=== PATIENT | male | born 2000 | race Caucasian/White ===

== ENCOUNTER 2024-06-01 16:10 | Emergency (ER) | payer BC, SELFPAY ==
--- NOTE | ~2024-06-01 | CT_ITS ---
CLINICAL INDICATION: Right-sided abdominal pain COMPARISON: None. TECHNIQUE: Multiple contiguous axial images of the abdomen and pelvis were performed following the ad ministration of with 100 mL Omnipaque-350 intravenous contrast The dose-length product (DLP) was 685.12 mGy-cm. Automated exposure control and iterative reconstruction technique were employed. FINDINGS/OBSERVATIONS: Visualized lower thorax: The bilateral lung bases are clear. The heart is of normal size, without pericardial effusion. Small hiatal hernia is present. Liver: Decreased attenuation with normal enhancement within the liver suggesting fatty infiltration. Small f ocus within segment 4 suggesting focal fatty sparing. Gallbladder and biliary system: The gallbladder is only minimally distended, and otherwise unremarkable. Pancreas: The pancreas enhances homogeneously without ductal dilatation. Spleen: The spleen enhances homogeneously and is not enlarged measuring 8 cm in longitudinal dimension. Kidneys: The bilateral kidneys enhance symmetrically without hydronephrosis or renal calculi. Adrenal glands: Unremarkable. Gastrointestinal tract: Trace mural thickening and edema within multiple loops of small bowel, primarily to the right of midl ine for which a focal enteritis is suspected. A similar pattern is detected within the stomach and proximal duodenum although less prominent second mariela to underdistention. Appendix: The appendix is of normal caliber (axial series, images 118 through 134). Vasculature: Unremarkable. Lymph nodes: No pathologically enlarged or morphologically suspicious lymph nodes within the retroperitoneum or at the root of the mesentery. Multiple benign-appearing lymph nodes within the bilateral inguinal regio ns, a nonspecific finding. Pelvic structures: The bladder is decompressed, and otherwise unremarkable. The prostate gland is not enlarged. Body wall and musculoskeletal: Small fat-containing umbilical hernia. No significant degenerative disease within the lower thoracic or lumbosacral spine. IMPRESSION: Findings suggestive of a gastritis/duodenitis/enteritis, as detailed above. Normal gallbladder. Normal appendix. Reviewed, dictated and finalized at location A. UNICATION TECHNICIAN
--- NOTE | 2024-06-01 16:57 | ECG_ITS ---
Test Date: 2024-06-01 17:31:10 Measurements Intervals [place] Rate: 51 P: 14 ME: 132 QRS: 56 QRSD: 92 T: 42 QT: 424 QTc: 391 Interpretive Statements SINUS BRADYCARDIA WITH SINUS ARRHYTHMIA No previous ECG available for comparison Electronically Signed On 06-01-2024 17:53:18 PER ASSESSMENT NURSE by Nahomy Vasquez M.D.
--- NOTE | 2024-06-01 16:58 | ED_ITS ---
HPI - Abdominal Pain General Chief Complaint: Abdominal Pain <Erna BurksPAT singh - Last Filed: 06/01/24 17:09> Stated Complaint: abd pain <Erna Corey PAT Rodriguez - Last Filed: 06/01/24 17:09> Time Seen by Provider: 06/01/24 16:50 <Erna L. ANTHONY RodriguezN - Last Filed: 06/01/24 17:09> Focused HPI: Patient is a 23-year-old male presents to the ER with significant right upper and lower quadrant abdominal pain. He reports he has had symptoms including fever, chills, cough, emesis, nausea for the past 3 days. Earlier today he tested positive for the flu. Patient reports his abdominal pain was intermittent but is now constant. He reports the pain is in his right upper quadrant and radiates to his right flank and to his left abdomen. Patient reports marijuana use every other day, but has not used in the past couple of days. He reports his medical history includes asthma when he was younger but otherwise he has no medical history relevant to this ER visit. Patient denies any chest pain, shortness of breath. GENERAL: Well-appearing, well-nourished, and in no acute distress. HEAD: Normocephalic, atraumatic. CHEST: Clear to auscultation. ?No respiratory distress. HEART: Regular rate and rhythm.? NEURO: ?Alert and oriented x3. ABDOMEN: Positive Rovsing sign, positive McBurney's sign, + BS, increased pain with palpation to RUQ and RLQ Patient screened in triage and initial orders placed.? ?Additional care and disposition to be based upon?diagnostic testing and treatment. <Erna Rodriguez APRN - Last Filed: 06/01/24 17:09> Source: patient <JOAQUIN Marx Last Filed: 06/02/24 01:35> Mode of arrival: ambulatory <JOAQUIN Marx Last Filed: 06/02/24 01:35> Limitations: no limitations <JOAQUIN Marx Last Filed: 06/02/24 01:35> History of Present Illness HPI narrative: Agree with triage note above. <JOAQUIN Marx Last Filed: 06/02/24 01:35> Related Data Allergies/Adverse Reactions: Allergies Allergy/AdvReac Type Severity Reaction Status Date / Time sulfamethoxazole (From Allergy Mild Rash Verified 06/01/24 18:00 Sulfamethoxazole-Trimethoprim) trimethoprim (From Allergy Mild Rash Verified 06/01/24 18:00 Sulfamethoxazole-Trimethoprim) <Erna Rodriguez APRN - Last Filed: 06/01/24 17:09> Review of Systems 2 Review of Systems: All systems as dictated in HPI <JOAQUIN Marx Last Filed: 06/02/24 01:35> Exam 2 Narrative: GENERAL: Well-appearing, well-nourished, and in no acute distress. HEAD: Normocephalic, atraumatic. EYES: PERRLA and EOMI. ENT: Nares clear, no rhinorrhea or epistaxis. Mucous membranes moist. Oropharynx without tonsillar hypertrophy exudate or other lesions. NECK: Supple. No adenopathy or masses. CHEST: No respiratory distress. Clear to auscultation. No wheezes rales or rhonchi HEART: Regular rate and rhythm. No murmur heard. Normal peripheral pulses. ABDOMEN: Soft, nontender, nondistended, normal active bowel sounds. MSK: Normal range of motion. No edema. SKIN: Warm, dry, no rash. NEURO: Alert and oriented x4. No focal deficits. PSYCH: Normal mood and affect. <Irving Kenny PA-C - Last Filed: 06/02/24 01:35> Course Reevaluation(s) Reevaluation #1: Patient is doing better overall. States that he is not having the cramps now. <Irving Kenny PA-C - Last Filed: 06/02/24 01:35> Date: 06/01/24 <JOAQUIN Marx Last Filed: 06/02/24 01:35> Time: 20:44 <JOAQUIN Marx Last Filed: 06/02/24 01:35> Vital Signs Vital signs: Vital Signs Temperature 98.7 F 06/01/24 17:14 Pulse Rate 56 L 06/01/24 17:14 Respiratory Rate 20 06/01/24 17:14 Blood Pressure 141/95 H 06/01/24 17:14 Pulse Oximetry 100 06/01/24 17:14 Oxygen Delivery Room Air 06/01/24 17:14 Temperature 98.7 F 06/01/24 17:14 Pulse Rate 55 L 06/01/24 21:42 Respiratory Rate 16 06/01/24 21:42 Blood Pressure 151/59 H 06/01/24 21:42 Pulse Oximetry 100 06/01/24 21:42 Oxygen Delivery Room Air 06/01/24 17:14 <Erna Rodriguez, MACHINE ERECTOR - Last Filed: 06/01/24 17:09> Vital Signs Temperature 98.7 F 06/01/24 17:14 Pulse Rate 56 L 06/01/24 17:14 Respiratory Rate 20 06/01/24 17:14 Blood Pressure 141/95 H 06/01/24 17:14 Pulse Oximetry 100 06/01/24 17:14 Oxygen Delivery Room Air 06/01/24 17:14 Temperature 98.7 F 06/01/24 17:14 Pulse Rate 55 L 06/01/24 21:42 Respiratory Rate 16 06/01/24 21:42 Blood Pressure 151/59 H 06/01/24 21:42 Pulse Oximetry 100 06/01/24 21:42 Oxygen Delivery Room Air 06/01/24 17:14 <Irving Kenny PA-C - Last Filed: 06/02/24 01:35> MDM - Abdominal Pain MDM Narrative Medical decision making narrative: This is a 23-year-old male who presents to the ED for chief complaint of N/V/D and abdominal pain. Vitals are normal. Exam is benign overall. Patient was just tested positive for flu today. Lab work unremarkable overall. He does show signs of dehydration on the urinalysis with 4+ ketones but no UTI. CT abdomen pelvis with IV contrast: IMPRESSION: Findings suggestive of a gastritis/duodenitis/enteritis, as detailed above. Normal gallbladder. Normal appendix. Presentation consistent with gastroenteritis concurrent with influenza. He improved with fluids, antiemetics and Toradol here. Rx for Zofran given for home. Patient will be discharged in stable condition. Supportive measures discussed and return precautions given. Patient is understanding and agreeable with plan for discharge with PCP follow-up. <Irving Kenny PA-C - Last Filed: 06/02/24 01:35> Lab Data Result diagrams: 06/01/24 17:34 06/01/24 17:34 <Erna Rodriguez APRN - Last Filed: 06/01/24 17:09> Labs: Lab Results 06/01/24 Range/Units 17:34 WBC 6.5 (4.5-10.0) K/mm3 RBC 5.62 (4.6-6.20) M/mm3 Hgb 17.0 (14.0-18.0) g/dL Hct 49.3 (42.0-52.0) % MCV 87.7 (80-100) fl MCH 30.2 (26-34) pg MCHC 34.5 (32-36) g/dl RDW 11.9 (11.5-14.5) % Plt Count 281 (150-375) k/mm3 MPV 10.0 (7.4-10.4) fl Immature Gran % (Auto) 0.3 (0-0.5) % Neut % (Auto) 69.7 (45.5-73.1) % Lymph % (Auto) 14.5 L (18.3-44.2) % Saunders % (Auto) 14.8 H (2.6-8.5) % Eos % (Auto) 0.5 (0-4.4) % Baso % (Auto) 0.2 (0.2-1.2) % Lymph # (Auto) 0.94 (0.9-3.2) K/mm3 Saunders # (Auto) 1.0 H (0.1-0.6) K/mm3 Eos # (Auto) 0.0 (0-0.3) K/mm3 Baso # (Auto) 0.0 (0.0-0.1) K/mm3 Abs Immat Gran (auto) 0.02 (0.00-0.031) K/mm3 Absolute Neuts (auto) 4.5 (1.3-6.7) K/mm3 Absolute Nucleated RBC 0.000 (0.0-0.012) K/mm3 Nucleated RBC % 0.0 (0.0-0.2) % PT 13.9 (11.1-14.7) Seconds INR 1.0 APTT 36.9 H (22.3-36.8) Seconds Sodium 137 (137-145) mmol/L Potassium 3.8 (3.4-5.0) mmol/L Chloride 98 (98-107) mmol/L Carbon Dioxide 23 (22-30) mmol/L Anion Gap 16 H (4-12) mmol/L BUN 13 (9-20) mg/dL Creatinine 0.78 (0.7-1.3) mg/dL Estim Creat Clear Calc 136 ml/min Estimated GFR > 60 (59 - ) Glucose 98 (65-110) mg/dL Calcium 9.9 (8.4-10.2) mg/dL Total Bilirubin 0.7 (0.2-1.3) mg/dL AST 32 (17-59) U/L ALT 51 H (6-50) U/L Alkaline Phosphatase 65 (38-126) U/L Troponin I < 0.012 (0.000-0.034) ng/mL Total Protein 8.0 (6.3-8.2) g/dL Albumin 4.9 (3.5-5.1) g/dL Lipase 42 (23-300) U/L Urine Color Dark yellow (Yellow) Urine Appearance Clear (Clear) Urine pH 5.5 (5.0-9.0) Ur Specific Jackson > 1.045 H (1.001-1.035) Urine Protein 3+ H (Negative) mg/dL Urine Glucose (UA) Negative (Negative) mg/dL Urine Ketones 4+ H (Negative) mg/dL Ur Blood (Man) Negative (Negative) Urine Nitrate Negative (Negative) Urine Bilirubin Negative (Negative) Urine Urobilinogen 1.0 (<2.0) mg/dL Leukocyte Esterase Rfl Negative (Negative) TATUM/UL Urine RBC 0-2 (0-2) /hpf Urine WBC 0-5 (0-3) /hpf Ur Squamous Epith Cells None seen (Few) /hpf Urine Bacteria None seen /hpf Urine Casts 3-5 Hyaline Casts Present (None) /lpf <Erna Rodriguez, MACHINE ERECTOR - Last Filed: 06/01/24 17:09> Lab Results 06/01/24 Range/Units 17:34 WBC 6.5 (4.5-10.0) K/mm3 RBC 5.62 (4.6-6.20) M/mm3 Hgb 17.0 (14.0-18.0) g/dL Hct 49.3 (42.0-52.0) % MCV 87.7 (80-100) fl MCH 30.2 (26-34) pg MCHC 34.5 (32-36) g/dl RDW 11.9 (11.5-14.5) % Plt Count 281 (150-375) k/mm3 MPV 10.0 (7.4-10.4) fl Immature Gran % (Auto) 0.3 (0-0.5) % Neut % (Auto) 69.7 (45.5-73.1) % Lymph % (Auto) 14.5 L (18.3-44.2) % Saunders % (Auto) 14.8 H (2.6-8.5) % Eos % (Auto) 0.5 (0-4.4) % Baso % (Auto) 0.2 (0.2-1.2) % Lymph # (Auto) 0.94 (0.9-3.2) K/mm3 Saunders # (Auto) 1.0 H (0.1-0.6) K/mm3 Eos # (Auto) 0.0 (0-0.3) K/mm3 Baso # (Auto) 0.0 (0.0-0.1) K/mm3 Abs Immat Gran (auto) 0.02 (0.00-0.031) K/mm3 Absolute Neuts (auto) 4.5 (1.3-6.7) K/mm3 Absolute Nucleated RBC 0.000 (0.0-0.012) K/mm3 Nucleated RBC % 0.0 (0.0-0.2) % PT 13.9 (11.1-14.7) Seconds INR 1.0 APTT 36.9 H (22.3-36.8) Seconds Sodium 137 (137-145) mmol/L Potassium 3.8 (3.4-5.0) mmol/L Chloride 98 (98-107) mmol/L Carbon Dioxide 23 (22-30) mmol/L Anion Gap 16 H (4-12) mmol/L BUN 13 (9-20) mg/dL Creatinine 0.78 (0.7-1.3) mg/dL Estim Creat Clear Calc 136 ml/min Estimated GFR > 60 (59 - ) Glucose 98 (65-110) mg/dL Calcium 9.9 (8.4-10.2) mg/dL Total Bilirubin 0.7 (0.2-1.3) mg/dL AST 32 (17-59) U/L ALT 51 H (6-50) U/L Alkaline Phosphatase 65 (38-126) U/L Troponin I < 0.012 (0.000-0.034) ng/mL Total Protein 8.0 (6.3-8.2) g/dL Albumin 4.9 (3.5-5.1) g/dL Lipase 42 (23-300) U/L Urine Color Dark yellow (Yellow) Urine Appearance Clear (Clear) Urine pH 5.5 (5.0-9.0) Ur Specific Jackson > 1.045 H (1.001-1.035) Urine Protein 3+ H (Negative) mg/dL Urine Glucose (UA) Negative (Negative) mg/dL Urine Ketones 4+ H (Negative) mg/dL Ur Blood (Man) Negative (Negative) Urine Nitrate Negative (Negative) Urine Bilirubin Negative (Negative) Urine Urobilinogen 1.0 (<2.0) mg/dL Leukocyte Esterase Rfl Negative (Negative) TATUM/UL Urine RBC 0-2 (0-2) /hpf Urine WBC 0-5 (0-3) /hpf Ur Squamous Epith Cells None seen (Few) /hpf Urine Bacteria None seen /hpf Urine Casts 3-5 Hyaline Casts Present (None) /lpf <Irving Kenny PA-C - Last Filed: 06/02/24 01:35> Imaging Data Radiologist's impression: ITS Impressions Abdomen/Pelvis CT 06/01/24 18:37 IMPRESSION: Findings suggestive of a gastritis/duodenitis/enteritis, as detailed above. Normal gallbladder. Normal appendix. <Erna Rodriguez APRN - Last Filed: 06/01/24 17:09> ITS Impressions Abdomen/Pelvis CT 06/01/24 18:37 IMPRESSION: Findings suggestive of a gastritis/duodenitis/enteritis, as detailed above. Normal gallbladder. Normal appendix. <Irving Kenny PA-C - Last Filed: 06/02/24 01:35> Discharge Plan Discharge Clinical Impression: Viral gastroenteritis <Erna Rodriguez APRN - Last Filed: 06/01/24 17:09> Patient Disposition: Home, Self-Care <Erna Rodriguez APRN - Last Filed: 06/01/24 17:09> Condition: Stable <Erna Rodriguez APRN - Last Filed: 06/01/24 17:09> Instructions: Antibiotic Form, Gastroenteritis (ED) <Erna Rodriguez APRN - Last Filed: 06/01/24 17:09> Additional Instructions: Your exam and imaging today are reassuring overall. This is probably a viral gastroenteritis which will resolve on its own over the next several days. Use Zofran as needed for nausea. Stay very well hydrated and follow-up PCP on this. If you have any new or worsening symptoms please return to the ER for further evaluation. <Erna Rodriguez APRN - Last Filed: 06/01/24 17:09> Patient Language: Citizen Of [place] <Erna Rodriguez APRN - Last Filed: 06/01/24 17:09> Prescriptions: New ondansetron 4 mg tablet,disintegrating 4 mg PO Q8H PRN (Reason: nausea and vomiting) Qty: 10 0RF <Erna Rodriguez APRN - Last Filed: 06/01/24 17:09> Follow-up/Referrals: PHYSICIAN NOT ON STAFF,NONSTAFF [Primary Care Provider] - <Erna Rodriguez APRN - Last Filed: 06/01/24 17:09> Time of Disposition: 20:48 <Erna Rodriguez APRN - Last Filed: 06/01/24 17:09> 20:48 <Irving Kenny PA-C - Last Filed: 06/02/24 01:35>
[2024-06-01 17:14] VITALS: BP 141/95; PULSE 56; RESP 20; TEMP 37.1; O2SAT 100
[2024-06-01 17:45] LABS: Basophils Percent Auto 0.2 % (0.2-1.2); Eosinophils Percent Auto 0.5 % (0-4.4); Hematocrit 49.3 % (42.0-52.0); Immature Granulocyte Absolute 0.02 K/mm3 (0.00-0.031); Immature Granulocyte Percent A 0.3 % (0-0.5); Lymphocytes Absolute Auto 0.94 K/mm3 (0.9-3.2); Lymphocytes Percent Auto 14.5 % (18.3-44.2); Mean Corpuscular HGB Conc 34.5 g/dl (32-36); Mean Corpuscular Hemoglobin 30.2 pg (26-34); Mean Corpuscular Volume 87.7 fl (80-100); Monocytes Percent Auto 14.8 % (2.6-8.5); Neutrophils Absolute Auto 4.5 K/mm3 (1.3-6.7); Neutrophils Percent Auto 69.7 % (45.5-73.1); Platelet Count Result 281 k/mm3 (150-375); Red Blood Count 5.62 M/mm3 (4.6-6.20); Red Cell Distribution Width 11.9 % (11.5-14.5); White Blood Count 6.5 K/mm3 (4.5-10.0)
[2024-06-01 17:56] LABS: Alanine Aminotransferase 51 U/L (6-50); Albumin Level 4.9 g/dL (3.5-5.1); Alkaline Phosphatase 65 U/L (38-126); Anion Gap 16 mmol/L (4-12); Aspartate Amino Transferase 32 U/L (17-59); Bilirubin,Total 0.7 mg/dL (0.2-1.3); Blood Urea Nitrogen 13 mg/dL (9-20); Calcium 9.9 mg/dL (8.4-10.2); Carbon Dioxide 23 mmol/L (22-30); Chloride 98 mmol/L (98-107); Estimated CRCL calculation 136 ml/min; Estimated Glomerular Filt Rate > 60; Glucose 98 mg/dL (65-110); Lipase 42 U/L (23-300); Potassium 3.8 mmol/L (3.4-5.0); Sodium 137 mmol/L (137-145)
[2024-06-01 17:58] LABS: Add Urine Microscopic? YES; Appearance Urine Clear (Clear); Bacteria Urine None Seen /hpf; Bilirubin Urine Negative (Negative); Blood Urine Negative (Negative); Color Urine Dark Yellow (Yellow); Glucose Urine UA Negative (Negative); Hyaline Casts Urine Present /lpf; Ketones Urine 4+ mg/dL (Negative); Leukocyte Esterase Ur Negative LEU/UL (Negative); Nitrate Urine Negative (Negative); Protein Urine 3+ mg/dL (Negative); RBC Urine 0-2 /hpf (0-2); Specific Grav Ur > 1.045 (1.001-1.035); Squamous Epithelial Cell Urine None Seen /hpf (Few); WBC Urine 0-5 /hpf (0-3); pH Urine 5.5 (5.0-9.0)
[2024-06-01 18:05] LABS: Prothrombin Time 13.9 Seconds (11.1-14.7)
[2024-06-01 18:06] LABS: Partial Thromboplastin Time 36.9 Seconds (22.3-36.8)
[2024-06-01 18:08] LABS: Troponin I < 0.012 ng/mL (0.000-0.034)
[2024-06-01 18:49] VITALS: BP 161/87; PULSE 67; RESP 20; O2SAT 100
[2024-06-01] MEDS: KETOROLAC 30 MG/ML VIAL (*BKC) IV PUSH (19:17)
[2024-06-01 19:53] VITALS: BP 131/71; PULSE 54; RESP 15; O2SAT 100
[2024-06-01] MEDS: BELLADONNA ALK/PHENOB ELIX 10 ML, MAG HYDROX/ALUMINUM HYD/SIMETH 30 ML, LIDOCAINE 2% VI... PO (20:00)
[2024-06-01] MEDS: FAMOTIDINE 20 MG/2 ML VIAL IV PUSH (20:01)
[2024-06-01] MEDS: LACTATED RINGERS 1,000 ML 999 ML IV CONT ×2 (20:01)
[2024-06-01 21:42] VITALS: BP 151/59; PULSE 55; RESP 16; O2SAT 100
--- OUTSIDE RECORDS SUMMARY | 2024-06-04 14:53 | XMS_ITS | Clinical Summary ---
Author Organization [facility] [id number] Address [address] [place] [address] Care Team Providers Care Core Driller Name Role Phone Ana Renteria MD, Isak Sarah Primary Care Provide r Allergies Active Allergy Reactions Criticality Noted Date Comments Sulfamethoxazole-Trimethoprim Rash Medium 2009 Medications No known medications Active Problems Problem Noted Date Diagnosed Date Deviated nasal septum 02/21/2023 Epistaxis 01/30/2023 Assessment & Plan (01/30/2023 7:40 AM CDT): Refer to ENT for possible cauterization Routine medical exam 02/27/2022 Assessment & Plan (07/09/2023 8:39 AM PRACTICE MANAGEMENT CONSULTANT): Wear sunscreen with SPF over 50 while outdoors. Wear sun protective head wear and clothing if planning to stay outdoors exposed to the direct sunlight for extended hours. Wear seatbelts while in a vehicle. Do not TEXT and DRIVE Do not DRINK and DRIVE. Drink responsibly Follow a heart healthy diet and lifestyle. Consume 5-7 servings of fruits and vegetables a day.. Such as the Mediterranean Diet. Maintain/attain normal body weight. Exercise regularly, minimum 20 mins 3 days a week to reduce cardiovascular healthy. Maintain good sleep schedule and sleep habits I recommend that all patients follow a diet that is high in fruits and vegetables and low in processed foods such as sugar and foods that are made with white flour. I recommend using beneficial fats such as olive oil, nuts, seeds and berries and avoiding saturated animal fats. Please stay physically active to the extent that you are physically able to. Test results: if you have not received communication about test results within 7 days of the test being performed, please contact the office. I strongly encourage myChart sign ups. It can facilitate communication flow. Please contact the office for instructions on signing up. Assessment & Plan (02/27/2022 3:00 PM CDT): Labs ordered but would also need this prior to starting medications Attention deficit 02/27/2022 Assessment & Plan (02/27/2022 3:00 PM CDT): Has symptoms and possibly falls under pathological ADHD , will look into testing for this Discussed treatments, risk benefits alternatives Class 1 obesity due to exces s calories without serious comorbidity with body mass index (BMI) of 31.0 to 31.9 in adult 02/27/2022 Encounters Date Type Department Care Team Description 06/01/2024 3:15 PM PRACTICE MANAGEMENT CONSULTANT Office Visit [facility] [address] [phone] Janina Browning NP Abdominal pain (Primary Dx); Influenza A 06/01/2024 Nurse Triage [facility] [address] [place] [phone] Isak Perze Jr., MD from Last 3 Months Immunizations Name Administration Dates Next Due DTaP 07/28/2004, 2,01/31/2001,12/02,2000 HPV, Quadrivalent 03/08/2014,11/04/2013,09/05/19 14 Hep A, Pediatric 09/03/2012, 2,07/31/2006,07/31 Hep B / HiB 10/28/2001,2000,2000 Hep B, Adolescent or Pediatric 10/28/2001,2000,2000 IPV 07/31/2005, 2,2000,09/30 Influenza LAIV (Nasal) 01/30/2012,01/09/2011,09/2009 Influenza, Quadrivalent, Spl it, Preservative Free, Intramuscular 03/08/2014 Influenza, Unspecified 01/30/2023(Deferr ed: Patient Refused),02/27/2022(Deferred: Patient Refused),01/19/2022(Deferred: Patient Refused),03/09/2008 MMR 07/31/2005,07/29/2001 Meningococcal MCV4P (Menactra) 09/10/2016,2011 Pfizer Sars-Cov-2 Bivalent V accination (12+ YRS) 05/18/2023 Pneumococcal Conjugate 7-Valent 01/27/20,07/29/2001,2000,09/30 Pneumococcal Conjugate, Unspecified 01/11,07/29/2001,2000,09/30 Tdap 07/09/2023,07/30/2011 Varicella 07/31/2006,08/06/2003 Surgical History Surgery Date Site/Laterality Comments TONSILLECTOMY AND ADENOIDECTOMY Medical History Medical History Date Comments Asthma Family History Relation Name Status Comments Father Alive Mother Alive Social History Tobacco Use Types Packs/Day Years Used Date Smoking Tobacco: Never Smokeless Tobacco: Never Tobacco Cessation:Counseling Given: Not Answered AUDIT-C Answer Date Recorded Q1: How often do you have a drink containing alc ohol? 2-4 times a month 01/30/2023 Q2: How many drinks containi ng alcohol do you have on a typical day when you are drinking? 1 or 2 01/30/2023 Q3: How often do you have si x or more drinks on one occasion? Never 01/30/2023 PHQ-2 Answer Date Recorded PHQ-2 Total Score (If total score is 3 or more points, staff should administer the PHQ-9) 0 08/19/2023 Sex and Gender Information Value Date Recorded Sex Assigned at Not on file Legal Sex Male 7:08 PM PRACTICE MANAGEMENT CONSULTANT Gender Identity Male 06/01/2024 10:38 AM PRACTICE MANAGEMENT CONSULTANT Sexual Orientation Straight 06/01/2024 10 :38 AM PRACTICE MANAGEMENT CONSULTANT Obstetrics History Last Filed Vital Signs Vital Sign Reading Time Taken Comments Blood Pressure 128/84 06/01/2024 3:28 PM PRACTICE MANAGEMENT CONSULTANT Pulse 69 06/01/2024 3:28 PM PRACTICE MANAGEMENT CONSULTANT Temperature 37.1 ??C (98.7 ??F) 06/01/2024 3:28 PM CS T Respiratory Rate 24 06/01/2024 3:28 PM PRACTICE MANAGEMENT CONSULTANT Oxygen Saturation 99% 06/01/2024 3:28 PM PRACTICE MANAGEMENT CONSULTANT Inhaled Oxygen Concentration - - Weight 95.7 kg (211 lb) 06/01/2024 3:28 PM PRACTICE MANAGEMENT CONSULTANT Height 175.3 cm (5' 9.02 ) 08/19/2023 10:45 AM C DT Body Mass Index 31.14 08/19/2023 10:45 AM CDT Plan of Treatment Health Maintenance Due Date Last Done Comments Hepatitis C Screening 2000 Meningococcal B Vaccine (1 o f 2 - Patient Seeks Protection) 2016 Covid-19 Vaccine (5 2023-2 5 season) 2024 05/18/2023, 03/28/2021, 09/01/2020, Additional history exists Influenza Vaccine (#1) 2024 4, 01/30/2012, 01/09/2011, Additional history exists Regular Well Visit/Exam 18-64 07/09/2024 07/09/2023, 02/27/2022 Depression Screening 08/18/2024 08/19/2023, 07/09/2023, 01/30/2023, Additional history exists DTaP/Tdap/Td Vaccine (8 - Td or Tdap) 07/09/2033 07/09/2023, 07/30/2011, 07/28/2004, Additional history exists Pneumococcal vaccine <65 Completed 002, 01/26/2002, 07/29/2001, Additional history exists Varicella Vaccines Completed 07/31/2006, 08/06/2003 HPV Vaccines Completed 03/08/2014, 10/12, 09/04/2013 Procedures Procedure Name Priority Date/Time Associated Diagnosis Comments POC INFLUENZA A/B, COVID-19 ANTIGEN Routine 06/01/2024 3:35 PM PRACTICE MANAGEMENT CONSULTANT Influenza A from Last 3 Months Results * (ABNORMAL) POC Influenza A/B, COVID-19 antigen (06/01/2024 3:35 PM PRACTICE MANAGEMENT CONSULTANT) Influenza A Ag, POC Positive(A) Negative [facility] Influenza B Ag, POC Negative Negative [facility] COVID-19 Ag POC Presumptive Negative Presumptive Negative, Invalid [facility] Nasal 06/01/2024 3:35 PM PRACTICE MANAGEMENT CONSULTANT Janina Browning NP POINT OF CARE TEST ORDERAB LES Final Result [facility] [place] [address], [facility] from Last 3 Months Additional Health Concerns Infection Onset Date Last Indicated Influenza, adult 06/01/2024 06/01/2024 [place] [employer] [employer] [facility] Care Teams Core Driller Relationship Specialty Start Date End Date Isak Perez Jr., MD [address] [place] [address] [phone] PCP - General Internal Medicine 02/27/22
--- OUTSIDE RECORDS SUMMARY | 2024-06-04 14:53 | XMS_ITS | Clinical Summary ---
Author Organization [facility] Address [address] [place] [address]. [place], [place] [id number] [place] [id number] Care Team Providers Care Electrotyper Helper Name Role Phone Unavailable Primary Care Provider Unavailabl e Immunizations Name Administration Dates Next Due MODERNA COVID-19 (12+) MRNA, LNP-S, PF, 100 MCG/ 0.5 ML DOSE 09/01/2020,08/04/2020 PFIZER COVID-19 (12+) MRNA, LNP-S, PF, NICOLAS-SUCROSE, 30 MCG/0.3 ML (COMIRNATY) 05/18/2023 Social History Tobacco Use Types Packs/Day Years Used Date Smoking Tobacco: Never Assessed Sex and Gender Information Value Date Recorded Sex Assigned at Not on file Legal Sex Male 12:14 AM CDT Gender Identity Not on file Sexual Orientation Not on file Plan of Treatment Health Maintenance Due Date Last Done Comments Annual Physical 07/27/2003 Meningococcal B Vaccine (1 of 2 - Standard) 2016 Hepatitis C 2018 DTaP, Tdap and Td Vaccines (7 - Td or Tdap) 07/29/2021 07/30/2011, 07/28/2004, 10/28/2001, Additional history exists COVID-19 Vaccine ( - season) 2024 05/18/2023, 03/28/2021, 09/01/2020, Additional history exists Influenza Adult (#1) 2024 05/18/2023, 03/08/20 14 Hepatitis B Vaccines Completed 10/28/2001, 2000, 2000 Pneumococcal Vaccine: Pediatrics (0 to 5 Years) and At-Risk Patients (6 to 64 Years) Aged Out 01/26/2002, 07/29/2001, 2000, Additional history exists No longer eligible based on patient's age to complete this topic HPV Vaccines Completed 03/08/2014, 10/12, 09/04/2013 Meningococcal Vaccine Completed 09/10/2016, 012 RSV Immunizations Under 20 Months Aged Out No longer eligible based on patient's age to complete this topic
--- OUTSIDE RECORDS SUMMARY | 2024-06-04 14:53 | XMS_ITS | Encounter Summary ---
Author Organization [facility] Healthcare Address [address] [place] [id number] Care Team Providers Care An/Sqq 89(V)15 Sonar System Journeyman Name Role Phone Ana Renteria MD, Isak Sarah Primary Care Provide r Reason for Visit * Reason Onset Date Comments Vomiting 06/01/2024 Abdominal Pain 06/01/2024 Encounter Details Date Type Department Care Team ([facility] st Contact Info) Description 06/01/2024 Nurse Triage [facility] Medical Group Primary Care [address] [place] [phone] [place] [address] [place] [phone] Social History Tobacco Use Types Packs/Day Years Used Date Smoking Tobacco: Never Smokeless Tobacco: Never AUDIT-C Answer Date Recorded Q1: How often [...] on file Legal Sex Male 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 Patient states he is able to tolerate fluids but cannot tolerate solids. Last emesis was yesterday after eating chicken noodle soup. Patient reports intermittent diarrhea. Fever of 99.3 today, highest has been 100.4. Patient denies bloody stools or emesis, black emesis. Pain in the abdomen is in the right upper quadrant and radiatesacross the abdomen and into the right mid-back. Nurse Triage Disposition: See today in office. No available appt. Scheduled at [facility] today at 1515. Nursing care advice also provided. Encouraged to call back if there are further questions or concerns. Encouraged to call back if symptoms persist or worsen. Reason for Disposition MILD to MODERATE vomiting (e.g., 1-5 times/day) and lasts > 48 hours (2 days) Protocols used: [id number] ERCIAL REAL ESTATE LENDER * Telephone Encounter - Carola Avila - 06/01/2024 10:52 AM CST Regarding: looks like coffee grounds in vomit, fever, chills, stomach cramps to back, moderate pain ----- Message from Charline Harper sent at 06/01/2024 10:51 AM COMMERCIAL REAL ESTATE LENDER ----- Symptom Based Call Chief Complaint(s): looks like coffee grounds in vomit, fever, chills, stomach cramps to back, moderate pain Duration: day 3 What type of symptom(s) is the patient experiencing? Red Flag. Is the patient concerned they are experiencing a medical emergency requiring an ambulance? No Additional Comments: none Does message need to be routed? Yes-Action Needed ERCIAL REAL ESTATE LENDER documented in this encounter Plan of Treatment Not on file documented as of this encounter Visit Diagnoses Not on filedocumented in this encounter Care Teams An/Sqq 89(V)15 Sonar System Journeyman Relationship Specialty Start Date End Date Isak Perez Jr., MD [address] [place] [id number] PCP - General Internal Medicine 02/27/22 documented as of this encounter
--- OUTSIDE RECORDS SUMMARY | 2024-06-04 14:53 | XMS_ITS | Encounter Summary ---
Author Organization [facility] Healthcare Address [address] [place] [id number] Care Team Providers Care Stemmer Machine Name Role Phone Ana Renteria MD, Isak Sarah Primary Care Provide r Reason for Visit * Reason Comments Abdominal Pain Abdominal pain, feve r, body aches, chills, and back pain x 3 days. Vomited 4-5 times in the last 3 days. Diarrhea 2-3 times a day since sxs started. Has slight congestion and runny nose. Encounter Details Date Type Department Care Team (Late st Contact Info) Description 06/01/2024 3:15 PM FACILITIES SUPERVISOR Office Visit [facility] Medical Group Convenient Care at [address] [phone] Janina Browning NP [address] [place] [address] [address] [place] [address] Abdominal pain (Primary Dx); Influenza A Social History Tobacco Use Types Packs/Day Years [...] on file Legal Sex Male 7:08 PM FACILITIES SUPERVISOR Gender Identity Male 06/01/2024 10:38 AM FACILITIES SUPERVISOR Sexual Orientation Straight 06/01/2024 10 :38 AM FACILITIES SUPERVISOR documented as of this encounter Last Filed Vital Signs Vital Sign Reading Time Taken Comments Blood Pressure 128/84 06/01/2024 3:28 PM FACILITIES SUPERVISOR Pulse 69 06/01/2024 3:28 PM FACILITIES SUPERVISOR Temperature 37.1 ??C (98.7 ??F) 06/01/2024 3:28 PM CS T Respiratory Rate 24 06/01/2024 3:28 PM FACILITIES SUPERVISOR Oxygen Saturation 99% 06/01/2024 3:28 PM FACILITIES SUPERVISOR Inhaled Oxygen Concentration - - Weight 95.7 kg (211 lb) 06/01/2024 3:28 PM FACILITIES SUPERVISOR Height - - Body Mass Index 31.14 08/19/2023 10:45 AM CDT documented in this encounter Patient Instructions * Patient Instructions* Janina Browning NP - 06/01/2024 3:15 PM FACILITIES SUPERVISOR Patient presents today with abdominal pain x3 days worsening over the last 24 hours. Patient has had vomiting for 3 days with hematemesis x1 episode. Patient reports diarrhea 2-3 times per day. Patient with influenza A positive. Patient does have significant abdominal pain with exam. Concern for intra-abdominal etiology. Discussed with patient possibility of enteritis. Patient is having difficulty both lying flat and sitting up with abdominal pain. Patient will remain NPO until evaluation. LITIES SUPERVISOR documented in this encounter Plan of Treatment Not on file documented as of this encounter Procedures Procedure Name Priority Date/Time Associated Diagnosis Comments POC INFLUENZA A/B, COVID-19 ANTIGEN Routine 06/01/2024 3:35 PM FACILITIES SUPERVISOR Influenza A documented in this encounter Results * (ABNORMAL) POC Influenza A/B, COVID-19 antigen (06/01/2024 3:35 PM FACILITIES SUPERVISOR) Influenza A Ag, POC Positive(A) Negative [facility] Influenza B Ag, POC Negative Negative [facility] COVID-19 Ag POC Presumptive Negative Presumptive Negative, Invalid [facility] Nasal 06/01/2024 3:35 PM FACILITIES SUPERVISOR us Janina Browning DIRECTOR PROFESSIONAL SERVICES POINT OF CARE TEST ORDERAB LES Final Result Performing Organization Address City/State/RUST Co de Phone Number [facility] [address] documented in this encounter Visit Diagnoses Diagnosis Abdominal pain- Primary Abdominal pain, unspecified site Influenza A Influenza with other respiratory manifestations documented in this encounter Care Teams Stemmer Machine Relationship Specialty Start Date End Date Isak Perez Jr., MD [address] [place] [phone] PCP - General Internal Medicine 02/27/22 documented as of this encounter
--- OUTSIDE RECORDS SUMMARY | 2024-06-04 14:53 | XMS_ITS | Referral Summary ---
Author Organization [facility] [address] [address] Address [address] [place] [phone] Care Team Providers Care Copy Machine Operator Name Role Phone Ana Renteria MD, Isak Sarah Primary Care Provide r Encounters Date Type Department Care Team Description 06/01/2024 3:15 PM [facility] Office Visit [facility] Convenient [facility] at [address] [phone] Janina Browning NP Abdominal pain (Primary Dx); Influenza A 06/01/2024 Nurse Triage [facility] Primary Care [address] [place] [phone] Isak Perez Jr., MD from Last 3 Months Allergies Active Allergy Reactions Criticality Noted Date Comments Sulfamethoxazole-Trimethoprim Rash Medium 2009 Medications No known medications Active Problems Problem Noted Date Diagnosed Date Deviated nasal septum 02/21/2023 Epistaxis 01/30/2023 Assessment & Plan (01/30/2023 7:40 AM CDT): Refer to ENT for possible cauterization Routine medical exam 02/27/2022 Assessment & Plan (07/09/2023 8:39 AM [facility]): Wear sunscreen with SPF over 50 while [...] of 31.0 to 31.9 in adult 02/27/2022 Immunizations Name Administration Dates Next Due DTaP [...] Conjugate, Unspecified 01/11,07/29/2001,2000,09/30 Tdap 07/09/2023,07/30/2011 Varicella 07/31/2006,08/06/2003 Social History Tobacco Use Types Packs/Day Years [...] on file Legal Sex Male 7:08 PM NURSE [facility]IOR[facility] Gender Identity Male 06/01/2024 10:38 AM N[facility]SE BEH[facility]IOR[facility] Sexual Orientation Straight 06/01/2024 10 :38 AM NURSE BEH[facility]IOR[facility] Last Filed Vital Signs Vital Sign Reading Time Taken Comments Blood Pressure 128/84 06/01/2024 3:28 PM [facility] Pulse 69 06/01/2024 3:28 PM [facility] Temperature 37.1 ??C (98.7 ??F) 06/01/2024 3:28 PM CS T Respiratory Rate 24 06/01/2024 3:28 PM [facility] Oxygen Saturation 99% 06/01/2024 3:28 PM [facility] Inhaled Oxygen Concentration - - Weight 95.7 kg (211 lb) 06/01/2024 3:28 PM [facility] Height 175.3 cm (5' 9.02 ) 08/19/2023 10:45 AM C DT Body Mass Index 31.14 08/19/2023 10:45 AM CDT Plan of Treatment Not on file Procedures Procedure Name Priority Date/Time Associated Diagnosis Comments POC INFLUENZA A/B, COVID-19 ANTIGEN Routine 06/01/2024 3:35 PM [facility] Influenza A from Last 3 Months Results * (ABNORMAL) POC Influenza A/B, COVID-19 antigen (06/01/2024 3:35 PM [facility]) Influenza A Ag, POC Positive(A) Negative [facility] Influenza B Ag, POC Negative Negative [facility] COVID-19 Ag POC Presumptive Negative Presumptive Negative, Invalid [facility] Nasal 06/01/2024 3:35 PM [facility] Janina Browning NP POINT OF CARE TEST ORDERAB LES Final Result [facility] [address] [place] [address], [facility] from Last 3 Months Additional Health Concerns Infection Onset Date Last Indicated Influenza, adult 06/01/2024 06/01/2024 Insurance flux - [place] flux - [place] flux - [place] Care Teams Copy Machine Operator Relationship Specialty Start Date End Date Isak Perez Jr., MD [address] [place] [id number] PCP - General Internal Medicine 02/27/22
== END 2024-06-01 21:44 | disposition home or self-care (01) ==
PROVIDERS: Registered Nurse; Emergency Provider Physician Assistant
DX: A08.4 Viral intestinal infection, unspecified (principal); J11.1 Influenza due to unidentified influenza virus with other respiratory manifestations; J45.909 Unspecified asthma, uncomplicated
CPT/HCPCS: 36415; 74177; 80053; 81001; 83690; 84484; 85025; 85610; 85730; 93005; 96361; 96372; 96374; 96375; 99284; A9270; J1885; J7120; Q9967